=== PATIENT | female | born 1940 | race Caucasian/White ===

== ENCOUNTER 2016-10-28 05:30 | Inpatient (IN) | payer MEDICARE, OTHER ==
--- NOTE | 2016-10-27 10:17 | HP ---
DATE OF CLINIC: 10/22/2016 KAYLEN TOVAR : 1940 PLANNED PROCEDURE: Left Reverse Shoulder Arthroplasty and Biceps Tenodesis DATE OF SURGERY: October 28, 2016 SURGEON: Anil Alexander M.D. HISTORY OF PRESENT ILLNESS Kaylen Tovar is a 76 year old female. * Medication list reviewed with patient allergy list reviewed with patient. The patient is a 76-year-old female who is LHD who has complaints about bilateral shoulder pain. The patient's underlying diagnosis is bilateral rotator cuff arthopathy. The patient rates her pain as 6/10 today. She is here to discuss with moving forward with a left RSA. She was previously seen by Hunter Rodrigez PA-C who referred her to me for further evaluation. The patient has a history of bilateral shoulder surgeries. On the left side she has had 2 shoulder surgeries; the first surgery was performed by Dr. Cordero who did an arthroscopic attempt at a rotator cuff repair. This was later revised through a mini open approach performed by Dr. Cavanaugh, also in [place], on 10/08/11. Both attempts to perform a left shoulder rotator cuff repair have failed and she continues to struggle with left shoulder pain. She rates her pain as probably 6-8/10. The patient had a steroid injection in 06/2016 with limited improvement in her pain. The patient would like to consider moving forward with a surgery on the left and would like to talk to me about her options. She would like to see a model of a reverse shoulder arthroplasty and discuss with me her options. We discussed the risks and benefits of both non-operative and surgical options and she has elected to proceed with surgery. She presents today preoperatively. PMH: She also reports that she had an arthroscopic attempt at a rotator cuff repair on 04/29/10 on the right shoulder. She has limited ROM on this side as well. CURRENT MEDICATION * Acetaminophen 500 MG Tablet as directed 2 every 6 hours, 0 days, 0 refills * Ambien 5 MG Tablet 1 every night as needed 0 days, 0 refills * Aspirin 81 MG Tablet Delayed Release 1 once a day 0 days, 0 refills * Clotrimazole 1 % Cream as directed 0 days, 0 refills * Cymbalta 60 MG Capsule Delayed Release Particles 1 once a day 0 days, 0 refills * Fish Oil 1000 MG Capsule 1 twice a day 0 days, 0 refills * Furosemide 20 MG Tablet 1 once a day 0 days, 0 refills * Gabapentin 400 MG Capsule four times a day 0 days, 0 refills * HydroCHLOROthiazide 12.5 MG Tablet 1 once a day 0 days, 0 refills * Levothyroxine Sodium 112 MCG Tablet 1 once a day 0 days, 0 refills * Lipitor 40 MG Tablet 1 once a day 0 days, 0 refills * Loratadine 10 MG Tablet 1 once a day 0 days, 0 refills * Multi Vitamin Daily Tablet 1 once a day 0 days, 0 refills * Naprosyn 500 MG Tablet 1 twice a day 0 days, 0 refills * Norvasc 10 MG Tablet 1 once a day 0 days, 0 refills * Nystop 379819 UNIT/GM Powder as directed 0 days, 0 refills * Oxybutynin Chloride ER 5 MG Tablet Extended Release 24 Hour 1 once a day 0 days, 0 refills * Potassium Chloride 10 MEQ/100ML Solution 1 once a day 0 days, 0 refills * Terbinafine HCl 1 % Cream as directed 0 days, 0 refills * TiZANidine HCl 2 MG Tablet 1 every night as needed 0 days, 0 refills * TraMADol HCl 50 MG Tablet as directed 2 tabs 4 times a day, 0 days, 0 refills * Triamcinolone Acetonide 0.1 % Cream as directed 0 days, 0 refills * Vitamin D3 2000 UNIT Capsule 1 once a day 0 days, 0 refills * Xalatan 0.005 % Solution 1 once a day 0 days, 0 refills PAST MEDICAL/SURGICAL HISTORY Reported: Shoulder Arthroscopy Right shoulder RCR 04/29/10, Left shoulder tendon repair 08/2011 & 09/2011. Medical: Stomach problems ulcers in my 20's, bladder disease, Reported numbness, Reported tingling, Diabetes Mellitus [id number], history of Arthritis, Depression, Thyroid Disorder, Hypertension, Anemia, Vertigo, and Poor healing wounds/lesions. SOCIAL HISTORY Social history unchanged. Behavioral: No caffeine use, no tobacco use, not a current smoker, and not chewing tobacco. Quit smoking stopped in 1998 after smoking 1 pack a day for 40+ years. Smoking status: Former smoker. Alcohol: No consumption of alcohol and not using alcohol. Drug Use: Drug use alcoholic but quit in 1985. 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 ALLERGIES * Mirtazapine Reaction: anxiety * Penicillin Reaction: Skin Rashes/Hives * Rozerem Reaction: dizziness/upset stomach REVIEW OF SYSTEMS Systemic: No fever and no recent weight change. Cardiovascular: No chest pain or discomfort and no palpitations. Pulmonary: No cough and no wheezing. Gastrointestinal: No nausea, no vomiting, no abdominal pain, and no diarrhea. Hematologic: No easy bleeding (no blood clots). Neurological: No motor disturbances and no sensory disturbances. Skin: No skin lesions and no rash. PHYSICAL FINDINGS * Vitals taken 10/22/2016 01:30 pm BP-Sitting R 153/79 mmHg 100 - 120/56 - 80 BP Cuff Size Regular Pulse Rate-Sitting 70 bpm 50 - 100 Pulse Rhythm Regular Temp-Oral 97.6 F 96 - 101 Height 56.5 in 59 - 68 Weight 185 lbs 95 - 175 Body Mass Index 40.7 kg/m2 Body Surface Area 1.73 m2 Pain Level 6 General Appearance: * Well developed. * In no acute distress. Eyes: General/bilateral: Extraocular Movements: * Normal. Lungs: * Clear to auscultation. * No wheezing was heard. * No rales/crackles were heard. Cardiovascular: Heart Rate and Rhythm: * Heart rate was normal. * Heart rhythm regular. Abdomen: Palpation: * Abdominal non-tender. Neurological: * Oriented to time, place, and person. The patient walks with a walker so she relies on both arms to ambulate. She states she cannot deal with a cane because of the pain she has associated with ambulation. The patient has limited motion of both shoulders. Both shoulders show restricted forward flexion, abduction, internal and external rotation. The left side has worse motion than the right. PHYSICAL FINDINGS RIGHT EXTREMITY Shoulder General Appearance: well-healed arthroscopic incisions, no bruising, no swelling, no gross deformity. 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 AROM Forward Flexion: 50 degrees ABD: 60 degrees IR: Highest posterior anatomy reached with thumb: Sacrum PROM ER (0): 30 degrees Strength (0-5/5) Deltoid: 5/5 Triceps: 5/5 Biceps: 5/5 EPL,Finger Flexors,Finger Extensors,Wrist Flexors, Wrist Extensors,Intrinsics,Church Secretary: 5/5 Rotator cuff Supraspinatus: POSITIVE empty can test Infraspinatus: POSITVE with weakness and pain with resisted external rotation Subscapularis: 4/5 (negative belly press test) Rotator Cuff Exam Neer's Sign: POSITIVE Hawkin's Sign: POSITIVE Superior Escape: Negative Biceps Exam Bicipital Groove Tenderness: POSITIVE Muscle Deformity (Hudson): Not present Instability Generalized Laxity(thumb to forearm, hyperextension of elbows and knees, hypermobility of multiple joints): Not present, no signs of instability Other Medial Scapular Tenderness: Negative Trapezius Pain: Negative Vascular Exam Radial Pulse: 2+ Sensation Gross sensation to light touch in the distribution of Median, Ulnar, axillary, and Radial nerves present PHYSICAL FINDINGS LEFT EXTREMITY General Appearance: well-healed arthroscopic incisions and a left shoulder anteorlateral open incision from a previous open RCR. She has no bruising, no swelling, no gross deformity. 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 AROM Forward Flexion: 45 degrees ABD: 50 degrees IR: Highest posterior anatomy reached with thumb: Sacrum PROM ER (0): 20 degrees Strength (0-5/5) Deltoid: 5/5 Triceps: 5/5 Biceps: 5/5 EPL,Finger Flexors,Finger Extensors,Wrist Flexors, Wrist Extensors,Intrinsics,Church Secretary: 5/5 Rotator cuff Supraspinatus: POSITIVE empty can test Infraspinatus: POSITIVE with weakness and pain with resisted external rotation Subscapularis: 4/5 (negative belly press test) Rotator Cuff Exam Neer's Sign: POSITIVE Hawkin's Sign: POSITIVE Superior Escape: Negative Biceps Exam Bicipital Groove Tenderness: POSITIVE Muscle Deformity (Hudson): Not present Instability Generalized Laxity(thumb to forearm, hyperextension of elbows and knees, hypermobility of multiple joints): Not present, no signs of instability Other Medial Scapular Tenderness: Negative Trapezius Pain: Negative Vascular Exam Radial Pulse: 2+ Sensation Gross sensation to light touch in the distribution of Median, Ulnar, axillary, and Radial nerves present PREVIOUS TESTS * Test: CBC NO DIFF Report Date: 10/20/2016 WBC 12.1 10*3/mL High MCV 92.4 fL RBC 4.58 10*6/uL MCH 29.3 pg MCHC 31.7 g/dL Low RDW 12.8 % PLATELET COUNT 277 10*3/mL HCT 42.3 % HGB 13.4 g/L * Test: ERYTHROCYTE SEDIMENTATION RATE Report Date: 10/20/2016 SED RATE 6 * Test: PROTHROMBIN TIME Report Date: 10/20/2016 PROTIME 10.0 s INR 0.95 * Test: PARTIAL THROMBOPLASTIN TIME Report Date: 10/20/2016 APTT 23.7 s Low * Test: BASIC METABOLIC PROFILE Report Date: 10/20/2016 BUN 20 mg/dL BUN/CREAT RATIO 29 High CALCIUM 9.6 mg/dL GLUCOSE 92 mg/dL CREATININE 0.7 mg/dL SODIUM 142 meq/L POTASSIUM 3.8 meq/L CHLORIDE 106 meq/L CARBON DIOXIDE 28 meq/L ANION GAP 12 meq/L GFR 81 High * Test: C-REACTIVE PROTEIN Report Date: 10/20/2016 CRP < 0.3 * Test: MRSA SCREEN Report Date: 10/21/2016 MRSA SCREEN NEGATIVE * Test: MSSA SCREEN Report Date: 10/21/2016 MSSA SCREEN POSITIVE FOR STAPHYLOCOCCUS AUREUS Abnormal * Test: URINALYSIS WITH MICROSCOPIC Report Date: 10/21/2016 EPITHELIAL CELL 0 WBC 10-20 GLUCOSE NEGATIVE BACTERIA 3+ PH,URINE 6.0 SPEC. GRAVITY 1.020 KETONE NEGATIVE NITRITE NEGATIVE RBC 0 BLOOD NEGATIVE BILIRUBIN NEGATIVE APPEARANCE SL CLOUDY PROTEIN TRACE COLOR YELLOW LEUK ESTERASE TRACE UROBILINOGEN NORMAL IMAGING 10.20.2016--CXR: No signs of any cardiopulmonary problems 09.25.2016--CT of the left shoulder--the patient has a glenoid that a baseplate could fit. The length of glenoid is close to 24mm. The patient has signs consistent with RC arthropathy. Lt shoulder X-rays performed on 07/09/16 show a high riding humeral head with a narrowed acromiohumeral distance on the left side consistent with chronically torn rotator cuff tear. The patient has post-surgical changes on the humeral head. The patient has some signs of osteoarthritis on this left side and 2 loose bodies more inferiorly consistent with a massive rotator cuff tear. Right shoulder X-rays performed on 07/09/16 also shows signs of rotator cuff arthropathy with signs of humeral head elevation and a loose body in the axillary recess consistent with early arthritis as well as a massive rotator cuff tear. ASSESSMENT Anil Alexander MD made the following assessments * Complete tear of right rotator cuff tendon --(right shoulder RC arthropathy) * Complete tear of left rotator cuff tendon --(Left shoulder RC arthropathy) PLAN Anil Alexander MD ordered the following therapy * Shoulder arthroplasty -left RSA with biceps tenodesis THERAPY * Patient fall risk screen negative. * Patient eligible for fall risk assessment. * Patient received fall risk assessment. SURGICAL CONSENT We have discussed surgical options including left reverse shoulder arthroplasty with biceps tenodesis and non-operative management. Due to her previous surgeries, we will send samples for signs of infection. Her ESR and CRP are normal so I have a low suspicion for this. I then spoke to the patient about the risks and benefits of surgery. I showed her my patient education power-point presentation where I reviewed the benefits, the technical aspects of the surgery and the risks associated with the procedure. Because of those findings and failure of conservative non-operative treatment, after a lengthy discussion of the risks and benefits she/he elected to proceed with the above mentioned surgery. The patient understood that the risks of infection, blood loss, neurovascular injury, anesthetic risk, risk of instability, stiffness and post-operative pain. I explained to the patient that a reverse shoulder replacement refers to the resurfacing of the glenoid (part of the scapula) placing a metal ball or glenosphere with screws on this side of the joint, and cementing a metal stem used to fix it on the inside of the arm bone (humerus) with a plastic socket fixed in the humeral shaft. This procedure is the standard approach tot he management of arthritis of the shoulder joint in a patient's shoulder without a functional rotator cuff tendon. Because it resurfaces both the ball and the socket sides of the joint, it provides the most assured approach to restoring comfort and function to the shoulder. We can perform this shoulder surgery by operating through the delto-pectoral interval through an incision in the anterior aspect of the shoulder. Commonly, we performed a tenodesis of the long head of the biceps and a release (and repair) of the subscapularis tendon from the humerus. The long head of the biceps is sutured to the pectoral major tendon, and the subscapularis tendon is repaired back to the bone at the conclusion of the surgery. After a release of the subscapularis, the capsule, which is usually tight and contracted, limiting motion of the shoulder, is released. The arthritic part of the ball is removed with care to preserve the rotator cuff. The bone spurs are removed from around the humerus to avoid unwanted contact with the scapula. We then shape the bone of the socket area (glenoid) to receive the glenosphere ball. This is fixed in place with screws while the humeral socket is held in place with a small amount of bone cement (polymethylmethacrylate). This goes inside the humeral bone. The subscapularis is then repaired to the humerus using sutures. The [id number] of the shoulder is then evaluated and stability is then examined. The incision is then washed and closed. Pendulum exercises will be taught to the patient the day after surgery. Patients are usually discharged from the hospital on the second day after surgery, as long as they are comfortable on oral pain medication have met our goals for their [id number], and are able to walk with good balance and can care for their daily needs. In the past, there has been a major concern about wear of the glenoid socket component or about its loosening. While these concerns remain to a degree, it appears that our current methods of socket preparation and current prosthesis designs have substantially reduced these risks. Shoulder replacement surgery usually results in a substantial improvement in the comfort and function of an arthritic shoulder, but the results cannot be expected to match the condition of a normal joint. The patient was counseled in detail regarding the diagnosis, treatment options available, prognosis of each treatment option and the potential risks and complications. The risks of surgery include, but are not limited to, anesthetic , neurovascular complications, pulmonary embolism, deep vein thrombosis, wound dehiscence, failure of any or all of the discussed procedures, infection of the joint or surrounding soft tissue, need for revision surgery, chronic pain, limitations in activities of daily living, inability to return to work, and loss of normal range of motion or functional use of the extremity. There is the possibility of failure over time that may require additional operative or non-operative treatment. The patient acknowledged that there are a number of perioperative risks not mentioned here and would still like to proceed. The patient is aware of and understands these risks, and wishes to proceed with the proposed surgical procedure and other procedures as indicated at the time of surgery. The patient has seen her PCP for a preoperative medical risk assessment. The preoperative instructions were reviewed with the patient and all questions were answered. CARE TEAM BUSHRA Aguilera Physician Alumni Relations Officer BLP/sg
[~2016-10-28 05:30] MED LIST: CLINDAMYCIN 600 MG PREMIX 50 ML IV PRN
[2016-10-28] MEDS ORDERED: IV START KIT ONE (05:49)
[2016-10-28] MEDS ORDERED: LACTATED RINGERS 1,000 ML ONE (05:49)
[2016-10-28] MEDS ORDERED: EPINEPHRINE 1 MG/ML 1ML AMP ONE (06:15)
[2016-10-28] MEDS ORDERED: CLINDAMYCIN 600 MG PREMIX 50 ML IV ONE (06:31)
[2016-10-28] MEDS ORDERED: ROCURONIUM BROMIDE 10 MG/ML DOSE IV ONE (06:46)
[2016-10-28] MEDS ORDERED: DEXAMETHASONE SOD PHOS 4 MG/1 ML VIAL ONE (06:46)
[2016-10-28] MEDS ORDERED: MIDAZOLAM HCL 1 MG/ML 2ML VIAL ONE (06:46)
[2016-10-28] MEDS ORDERED: FENTANYL 100 MCG/2 ML VIAL ONE (06:46)
[2016-10-28] MEDS ORDERED: PROPOFOL 20 ML IV ONE (06:46)
[2016-10-28] MEDS ORDERED: ONDANSETRON 4 MG/2ML 2 ML VIAL ONE (06:46)
[2016-10-28] MEDS ORDERED: NERVE BLOCK PROCEDURAL TRAY 1 EACH ONE (06:50)
[2016-10-28] MEDS ORDERED: ROPIVACAINE 0.5% 30 ML VIAL ONE (06:50)
[2016-10-28] MEDS ORDERED: ATROPINE SULFATE 0.4 MG/1 ML VIAL IV PRN (08:29)
[2016-10-28] MEDS ORDERED: FENTANYL 100 MCG/2 ML VIAL IV PRN (08:29)
[2016-10-28] MEDS ORDERED: NALOXONE HCL 0.4 MG/ML VIAL IV PRN (08:29)
[2016-10-28] MEDS ORDERED: LABETALOL HCL 5 MG/ML 20ML VIAL IV PRN (08:29)
[2016-10-28] MEDS ORDERED: ON-Q PUMP/ROPIVACAINE 0.2% 450 ML in PREMIX BAG 1 EACH NB PRN (08:29)
[2016-10-28] MEDS ORDERED: MEPERIDINE 25 MG/ML SYRINGE IV PRN (08:29)
[2016-10-28] MEDS ORDERED: PROMETHAZINE HCL 25 MG/ML VIAL IM PRN (08:29)
[2016-10-28] MEDS ORDERED: ONDANSETRON 4 MG/2ML 2 ML VIAL IV PRN ×2 (08:29→12:05)
[2016-10-28] MEDS ORDERED: LACTATED RINGERS 1,000 ML IV SCH (08:30)
--- NOTE | 2016-10-28 10:34 | PCMBPN ---
Brief Post Op Note: Date of Procedure: 10/28/16 Preoperative Diagnosis: 1. left shoulder rotator cuff arthropathy from failed rotator cuff repairs Postoperative Diagnosis: 1. [Same] Procedure: left shoulder reverse shoulder arthroplasty and biceps tenodesis Surgeon: Anil Alexander MD Assist: Elia WARD Anesthesia: GETA, left intrascalene nerve block and catheter for post-op pain relief Findings: as expected, pt has a large rotator cuff tear. Subscap was able to be repaired back. DJO size 10mm press-fit humeral stem. 32-4 glenosphere. screws 22 , 30, 14 and 26. Standard poly Condition: extubated, stable vitals, transferred to pacu Complications: None IV Fluids: 1600 mLs of LR Urine Output: 600 mLs Estimated Blood Loss: 200 mLs Tourniquet Time: [N/A] Specimens: [N/A] Implants: DJO Drains: [N/A] PLAN: NWB on the RUE. SLing at all times. Oxycodone for pain control, clinda x 24 hours post-op, and ASA for dvt prophylaxis.
[2016-10-28] MEDS ORDERED: ON-Q PUMP/ROPIVACAINE 0.2% 450 ML ONE (10:37)
[2016-10-28 10:38] VITALS: BMI 29.9
[2016-10-28] MEDS: HYDROMORPHONE HCL 1 MG/ML SYRINGE IV PRN ×3 (11:41→11:57)
--- NOTE | 2016-10-28 11:41 | RAD ---
SHOULDER-LEFT 1 VIEW HISTORY: Left reverse total shoulder arthroplasty. COMPARISONS: Preop examination dated 07/09/2016. FINDINGS: 2 intraoperative fluoroscopic images demonstrate placement of a reverse shoulder arthroplasty with the metallic components projecting over each other. No discrete pericomponent fracture is visualized. A total of 5.4 seconds of fluoroscopy was utilized for the examination. IMPRESSION: 1. Intraoperative fluoroscopy for placement of a reverse left shoulder arthroplasty as discussed above.
--- NOTE | 2016-10-28 11:49 | RAD ---
SHOULDER-LEFT 2 OR MORE VIEWS History: Postop shoulder arthroplasty. Comparison: Intraoperative examination of the same day. Findings: 3 views of the left shoulder were performed demonstrating placement of a reverse left shoulder arthroplasty with a noncemented humeral component. No evidence of a pericomponent fracture is suggested. The metallic components appear to be in appropriate position. There is lysis of the distal left clavicle noted, stable from its appearance on prior exam, possibly posttraumatic. The included portions of the left lung field are within expected. Impression: 1. A reverse left shoulder arthroplasty with no pericomponent fracture suggested.
[2016-10-28] MEDS ORDERED: MAGNESIUM HYDROXIDE 30 ML UDCUP PO PRN (12:05)
[2016-10-28] MEDS ORDERED: TRAMADOL HCL 50 MG TABLET PO PRN (12:05)
[2016-10-28] MEDS ORDERED: DIPHENHYDRAMINE HCL 50 MG/1 ML VIAL IV PRN (12:05)
[2016-10-28] MEDS ORDERED: MORPHINE SULFATE 2 MG/ML SYRINGE IV PRN (12:05)
[2016-10-28] MEDS ORDERED: LORATADINE 10 MG TABLET PO PRN (12:05)
[2016-10-28] MEDS ORDERED: TIZANIDINE HCL 4 MG TABLET PO PRN (12:05)
[2016-10-28] MEDS ORDERED: BISACODYL 10 MG SUP PR PRN (12:05)
[2016-10-28] MEDS ORDERED: PUMP TUBING ONE (13:09)
[2016-10-28] MEDS: LACTATED RINGERS 1,000 ML IV SCH ×2 (13:12→22:00)
[2016-10-28] MEDS ORDERED: MORPHINE SULFATE 4 MG/ML SYRINGE IV PRN (14:08)
[2016-10-28] MEDS: GABAPENTIN 100 MG CAPSULE PO SCH ×3 (14:28→20:43)
[2016-10-28] MEDS: CLINDAMYCIN 600 MG PREMIX 600 MG in Premix (D5W) 50 ml 1 EACH IV SCH (16:29)
[2016-10-28] MEDS: OXYBUTYNIN CHLORIDE 5 MG TABLET PO SCH (20:43)
[2016-10-28] MEDS: DOCUSATE SODIUM 100 MG CAPSULE PO SCH (20:43)
[2016-10-28] MEDS: NAPROXEN 500 MG TABLET PO SCH (20:43)
[2016-10-28] MEDS: ATORVASTATIN CALCIUM 40 MG TABLET PO SCH (20:44)
[2016-10-28] MEDS: TRIAMCINOLONE ACET CREAM 0.1% 30 APPLIC/15 G TUBE TP SCH (20:44)
[2016-10-28] MEDS: MUPIROCIN CALCIUM 2% OINT 22 APPLIC/22 G TUBE TP SCH (20:44)
[2016-10-28] MEDS: ZOLPIDEM TARTRATE 5 MG TABLET PO SCH (20:44)
[2016-10-28] MEDS: LATANOPROST 0.005% 50 GTTS/2.5 ML BOT SOLN.DROP OU SCH (20:55)
[2016-10-28] MEDS: NYSTATIN TOPICAL POWDER 100 MU/G 5 APPLIC/15 G BOT TP SCH (20:55)
[2016-10-28] MEDS ORDERED: TERBINAFINE HCL TP SCH (21:00)
[2016-10-28] MEDS ORDERED: Non Formulary Drug 1 EACH EA (Omega-3 Fatty Acids/Fish Oil [Fish Oil 1,000 Mg Softgel] 1 E PO SCH (21:00)
[2016-10-29] MEDS: CLINDAMYCIN 600 MG PREMIX 600 MG in Premix (D5W) 50 ml 1 EACH IV SCH (00:07)
[2016-10-29] MEDS: OXYCODONE HCL 5 MG TABLET PO PRN ×4 (05:33→13:19)
[2016-10-29] MEDS: LACTATED RINGERS 1,000 ML IV SCH (05:53)
[2016-10-29 06:51] LABS: HEMATOCRIT 25.8 % (37.0-47.0); HEMOGLOBIN 8.5 gm/l (12.0-16.0); MEAN CELL VOLUME 90.8 fl (81.0-99.0); MEAN CORPUSCULAR HEMOGLOBIN 29.9 pg (27.0-31.0); MEAN CORPUSCULAR HGB CONC 32.9 g/dl (33.0-37.0); RED CELL DISTRIBUTION WIDTH 12.8 % (11.5-14.5)
[2016-10-29 07:15] LABS: CALCIUM 8.4 mg/dL (8.6-10.3)
[2016-10-29] MEDS: LEVOTHYROXINE SODIUM 112 MCG TABLET PO SCH (07:30)
--- NOTE | 2016-10-29 08:09 | PDOC43 ---
- Subjective Subjective: Reports Pain Tolerable (Pt having some more pain but overall slept well overnight.), Denies Chest Pain, Denies Nausea, Denies Vomiting - Objective Vital Signs Temperature 97.9 F 10/29/16 07:21 Pulse Rate 87 10/29/16 07:21 Respiratory Rate 17 10/29/16 07:21 Blood Pressure 126/74 10/29/16 07:21 O2 Saturation by Pulse Oximetry 100 10/29/16 07:21 Oxygen Delivery Method Nasal Cannula Oxygen Flow Rate 2 Laboratory 10/29/16 06:30 10/29/16 06:30 10/29/16 06:30 RBC 2.84 L MCHC 32.9 L Estimated GFR 120 H Calcium 8.4 L Active Medication Orders Category Date Time Status Acetaminophen [Tylenol] Med 10/29/16 10:58 Active 500 - 1,000 mg PO Q6H PRN Amlodipine Besylate [Norvasc] Med 10/29/16 09:00 Active 5 mg PO DAILY Aspirin (Enteric Coated) [Ecotrin] Med 10/29/16 09:00 Active 325 mg PO DAILY Atorvastatin Calcium [Lipitor] Med 10/28/16 20:00 Active 40 mg PO QPM Bisacodyl [Dulcolax] Med 10/28/16 12:05 Active 10 mg KS DAILY PRN Diphenhydramine HCl [Benadryl] Med 10/28/16 12:05 Active 25 - 50 mg IV Q6H PRN Docusate Sodium [Colace] Med 10/28/16 21:00 Active 100 mg PO BID Duloxetine HCl [Cymbalta] Med 10/29/16 09:00 Active 60 mg PO QAM Gabapentin [Neurontin] Med 10/28/16 13:00 Active 400 mg PO QID Lactated Ringers 1,000 ml Med 10/28/16 12:05 Active IV 125 mls/hr Latanoprost 0.005% [Xalatan] Med 10/28/16 21:00 Active 1 gtts OU BEDTIME Levothyroxine Sodium [Levothroid] Med 10/29/16 07:30 Active 112 mcg PO QAMAC Loratadine [Claritin] Med 10/28/16 12:05 Active 10 mg PO DAILY PRN Losartan Potassium [Cozaar] Med 10/29/16 09:00 Active 25 mg PO DAILY Magnesium Hydroxide [Milk of Magnesia] Med 10/28/16 12:05 Active 30 ml PO DAILY PRN Morphine Sulfate Med 10/28/16 12:05 Active 2 - 4 mg IV Q4H PRN Morphine Sulfate Med 10/28/16 14:08 Active 2 - 4 mg IV Q4H PRN Multivitamin W/ Minerals [Theragran-M] Med 10/29/16 09:00 Active 1 tab PO DAILY Mupirocin Calcium 2% [Bactroban] Med 10/28/16 21:00 Active 1 applic TP BID Naproxen [Naprosyn] Med 10/28/16 21:00 Active 500 mg PO BID Nystatin Topical Powder [Mycostatin Topical Powder] Med 10/28/16 21:00 Active 1 applic TP BID Merritt-3 Fatty Acids/Fish Oil [Fish Oil 1,000 mg Softgel Med 10/28/16 21:00 Hold ] 1 each PO BID Ondansetron 4 mg/2ml Vial [Zofran] Med 10/28/16 12:05 Active 4 - 6 mg IV Q6H PRN Oxybutynin Chloride [Ditropan] Med 10/28/16 21:00 Active 5 mg PO BID Oxycodone HCl [Roxicodone] Med 10/28/16 12:05 Active 5 - 10 mg PO Q4H PRN Sodium Chloride 0.9% Flush [Normal Saline 10ml Flush] Med 10/28/16 12:05 Active 10 - 50 ml IV PRN PRN Sodium Chloride 0.9% Flush [Normal Saline 10ml Flush] Med 10/29/16 09:00 Active 10 ml IV Q8HR Terbinafine HCl [Lamisil At] Med 10/28/16 21:00 Pending 12 gm TP BID Tizanidine HCl [Zanaflex] Med 10/28/16 12:05 Active 2 mg PO Q8H PRN Tramadol HCl [Ultram] Med 10/28/16 12:05 Active 100 mg PO QAM PRN Triamcinolone Acet 0.1% [Kenalog] Med 10/28/16 21:00 Active 1 applic TP BID Vitamin D3 Med 10/29/16 09:00 Active 2,000 units PO DAILY Zolpidem Tartrate [Ambien] Med 10/28/16 21:00 Active 5 mg PO BEDTIME Intake and Output 02/06/17 02/07/17 02/08/17 23:59 23:59 23:59 Intake Total 2486 2825 Output Total 1475 1400 Balance 1011 1425 General: Afebrile - Left Upper Extremity Incision: Dressing Clean/Dry/Intact Motor: Extensor Pollicis Longus: 5/5, Finger Flexors: 5/5, Finger Extensors: 5/5 , Wrist Flexors: 5/5, Wrist Extensors: 5/5, Intrinsics: 5/5 Gross Sensation to Light Touch: Present: Median Nerve, Ulnar Nerve, Radial Nerve , Axillary Nerve Capillary Refill: < 3 Seconds - Disposition POD#1 s/p left RSA NWB on the RUE. Sling at all times. PCN at all times. ASA for DVT prophylaxis. PT and OT will work with pt today.
[2016-10-29] MEDS: TRIAMCINOLONE ACET CREAM 0.1% 30 APPLIC/15 G TUBE TP SCH ×2 (09:13→20:26)
[2016-10-29] MEDS: MUPIROCIN CALCIUM 2% OINT 22 APPLIC/22 G TUBE TP SCH ×2 (09:13→20:26)
[2016-10-29] MEDS: VITAMIN D3 1,000 UNITS CAP.LIQ PO SCH (09:13)
[2016-10-29] MEDS: GABAPENTIN 100 MG CAPSULE PO SCH ×4 (09:14→20:26)
[2016-10-29] MEDS: LOSARTAN POTASSIUM 50 MG TABLET PO SCH (09:14)
[2016-10-29] MEDS: DOCUSATE SODIUM 100 MG CAPSULE PO SCH ×2 (09:15→20:25)
[2016-10-29] MEDS: OXYBUTYNIN CHLORIDE 5 MG TABLET PO SCH ×2 (09:15→20:25)
[2016-10-29] MEDS: NAPROXEN 500 MG TABLET PO SCH ×2 (09:15→20:25)
[2016-10-29] MEDS: MULTIVIT W/ MINERALS 1 TAB TABLET PO SCH (09:15)
[2016-10-29] MEDS: DULOXETINE HCL 60 MG CAP PO SCH (09:15)
[2016-10-29] MEDS: ASPIRIN (ENTERIC COATED) 325 MG TABLET.EC PO SCH (09:15)
[2016-10-29] MEDS: AMLODIPINE BESYLATE 5 MG TABLET PO SCH (09:15)
[2016-10-29] MEDS: NYSTATIN TOPICAL POWDER 100 MU/G 5 APPLIC/15 G BOT TP SCH ×2 (09:32→20:25)
[2016-10-29] MEDS ORDERED: NYSTATIN TOPICAL POWDER 100 MU/G 5 APPLIC/15 G BOT TP SCH (10:45)
[2016-10-29] MEDS ORDERED: TRIAMCINOLONE ACET CREAM 0.1% 30 APPLIC/15 G TUBE TP SCH (10:45)
[2016-10-29] MEDS ORDERED: MUPIROCIN CALCIUM 2% OINT 22 APPLIC/22 G TUBE TP SCH (10:45)
[2016-10-29] MEDS ORDERED: ACETAMINOPHEN 500 MG TABLET PO PRN (10:58)
--- NOTE | 2016-10-29 15:41 | OP ---
Kaylen TOVAR : 1940 [id number] DATE OF PROCEDURE: October 28, 2016 PREOPERATIVE DIAGNOSIS: Left shoulder rotator cuff arthropathy after failed previous rotator cuff repairs performed by an outside orthopedic surgeon. POSTOPERATIVE DIAGNOSIS: Left shoulder rotator cuff arthropathy after failed previous rotator cuff repairs performed by an outside orthopedic surgeon. PROCEDURE: LEFT SHOULDER REVERSE SHOULDER ARTHROPLASTY AND BICEPS TENODESIS. SURGEON: Anil Alexander M.D. WATCH ASSEMBLER: Hunter Rodrigez P.A.-C. ANESTHESIA: General along with a left interscalene nerve block and catheter for postoperative relief. FINDINGS: As suspected, the patient had a large recurrent rotator cuff tear. I was able to remove a couple of previously placed rotator cuff anchors from the greater tuberosity. The subscapularis was able to be repaired back at the end of the case. I used a DJO size 10 mm PressFit humeral stem, a 32 -4 glenosphere and locking screws into the standard base plate measuring 22, 30, 14 and 26 mm. A standard poly was used. CONDITION: The patient was extubated with stable vital signs and transferred to the PACU. COMPLICATIONS: None. INTRAVENOUS FLUIDS: 1600 mL of Lactated Ringer's. URINE OUTPUT: 600 mL ESTIMATED BLOOD LOSS: 200 mL SPECIMENS: N/A TOURNIQUET TIME: N/A IMPLANTS: A DJO reverse shoulder arthroplasty. DRAINS: N/A PLAN: The patient will be nonweightbearing on the left upper extremity, in a sling at all times. Oxycodone and IV morphine for pain control postoperatively and clindamycin for 24 hours. Aspirin will be used for DVT prophylaxis. INDICATIONS: The patient is a 76-year-old female who has had two previous rotator cuff surgeries with surgeons performed by an orthopedic surgeon in [place]. She has persisted have pain and poor motion. 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 She and I discussed the risks and benefits of nonoperative and surgical treatment. I talked to her about how I would perform reverse shoulder arthroplasty, what would be involved with going ahead with the surgery and the limitations. I told her that this would not guarantee normal motion but will improve her motion and function. We spoke about the risk of infection, DVT and other perioperative problems such as stroke or myocardial infarction. After a lengthy description and reviewing the risks and benefits of the procedure she decided to proceed. PROCEDURE DESCRIPTION: The patient was seen in the preoperative area where I reviewed with the patient regarding the procedure. They agreed that the left side was the correct side and that this matched the consent form. I placed my initials and the word "yes" on the left arm. After my initials were on the left arm and I updated the H&P, signing it, the patient was seen by the anesthesia team. They reviewed with her the risks and benefits of a nerve block and an intra-scalene nerve catheter was placed under ultrasound guidance. At this point the patient was brought from the preoperative area to the operating suite where the patient was placed on the OR bed and was placed asleep without difficulty. The patient was then intubated without difficulty or complications. The patient was then placed in the beach chair position. The hips were flexed to 45 degrees and the knees were flexed to 45 degrees. Plastic goggles were used to cover the eyes and the head gear was placed securing the head to the bed. The patient was positioned so that a safety belt was secured and the patient had a black knee bump. The patient had bilateral SCDs on each foot for intra-operative DVT prophylaxis. The patient's head was positioned in a neutral position. At this point the bed was turned 45 degrees. The C-arm was brought in and I confirmed that we could obtain a Grashey view. After this was checked, a Betadine scrub, paint and chlorhexidine prep was used to prep the left upper extremity. At this point a final time-out was performed. We confirmed that the patient's correct images were brought up on the view box. This included xrays of the left shoulder and a CT scan demonstrating the version of the glenoid and bony landmarks. In this final time-out we confirmed that the left side was the correct side that our procedure was a left reverse shoulder arthroplasty with a long head of the biceps tendoesis and antibiotics clindamycin 600 mg. Almost ready to start the surgery, the incision was drawn with a sterile marker. I measured a 10cm line starting just proximal and medial to the coracoid process extending to the mid-shaft of the humerus in the delto-pectoral interval. An Ioban was placed above and below the axilla isolating it from the operative field. A #10 blade was now used to incise the skin. [place] cautery was used to gain good hemostasis through the subcutaneous fat and 2 Gelpi retractors were placed. An Army-Walnut was placed proximally. A Schnidt was used to dissect to identify the cephalic vein. It was brought medially as the deltoid laterally was freed up. A Suarez deltoid retractor was then placed. Anterior bursal tissue was removed exposing the long head of the biceps. It was then tenodesed to the upper border of the pec tendon by its insertion on the humerus with a #2 fiberwire. At this point the rotator interval was opened with [place] cautery. A small, sharp Mateo was placed into the joint and the anterior capsule was then exposed. A tag suture was then placed in the superior border of the capsule and the remaining portion of the subscapularis. I then used my finger to feel the anterior border of the subscapularis palpating the axillary nerve as well as the axillary artery more medial and inferior. Once this was identified with my traction suture on the upper border of the anterior capsule, this was removed from the lesser tuberosity exposing the humeral head. This was performed with the arm and elbow in adduction and with gentle external rotation which allowed for dislocation of the humeral head. Once this was dislocated a 30 degree guide was used to guide my cut of the humeral head setting the retroversion to match the glenoid. Once this was performed blunt Hohmann retractors were used to protect the conjoined tendon. A large rongeur was used to make a better starting point for the canal finder. A canal finder was then used in the proximal humerus followed by 6 and then 8mm hand canal reamers. Once these were placed a 6mm broach and a 10 mm broach was placed into the canal. Next, a small metaphyseal reamer was used to ream out inferior border of the metaphysis. I thought there was enough bone to possibly support a press-fit humeral stem. Now with the humerus prepared, I turned my attention to the glenoid. The 10mm broach was left in place in the humerus and the broach handle was removed. I then palpated the axillary nerve one more time anterior to my subscapularis and capsule. I then placed a blunt posterior Romana retractor posteriorly, a small sharp Hohmann retractor superiorly, and a Cobra anteriorly exposing the glenoid. The anterior labrum was removed and the glenoid was exposed. Once this was performed I used a 2.5mm drill bit to drill my airplane pilot photogrammetry hole into the glenoid. I then measured this. This measured 30mm. At this point I took the drill out and placed in the tap into the same hole making sure not to lose my path. I then used the base plate reamer followed by the small reamer until I got some good bleeding bone inferiorly. I then placed the 30mm base plate with a center 6.5mm screw and base plate without difficulty getting a good bite. I then placed four 5mm locking screws at 12 o'clock, 3 o'clock, 6 o'clock and 9 o'clock. Once these 5.0mm screws were placed I used the base plate reamer to clean around the base plate itself and then placed the glenosphere (32-4). The engaged glenosphere taper was checked and the glenosphere screw was placed with the torque screwdriver. With the glenosphere now implanted, I then returned back to the humerus re-dislocating the humeral head placing the Suarez retractor under the deltoid. The medium metaphyseal reamer was then used. I then placed a standard socket with a 32mm poly and re-reduced the humerus onto the glenosphere. The prosthesis had good tension and good ROM. The implant position was check on C-arm and confirmed the ROM in external rotation, forward flexion and abduction. The humerus was then re-dislocated, I asked for the final implants to be opened and I placed 4 fiber tape sutures through drill holes in the lesser tuberosity to repair the subscapularis back. These fibertapes would be placed around the implant and then through the subscapularis for our repair at the end. The final implant was impacted and then relocated the humerus onto the glenosphere. I then used a free needle to pass my fiber tapes around the humeral stem repairing the subscapularis and capsule back to the anterior aspect of the humerus. This was done with the arm in 30 degrees of external rotation. Once this was performed I took the arm through a [id number]. I checked for good hemostasis and then irrigated the wound once again. The deltopectoral interval was closed with non-absorbable Ethibond sutures to jeanne the interval for any possible future revision surgeries. This was followed by 0 Vicryl, interrupted 2-0 Vicryl followed by a running Monocryl suture. A DSD was applied. The team confirmed that all needle and sponge counts were correct. The patient was placed in a shoulder immobilizer and awoken without difficulty and transferred to the recovery room. In the recovery room, the patient neurovascularly was grossly intact. The patient was able to fire the EPL, FF, FE, WF, WE and intrinsics 4/5 strength and had gross sensation to light touch in the distribution median, ulnar, radial and axillary nerves prior to placing a left interscalene catheter. The patient will be discharged to the floor. We will give antibiotics for the next 24 hours. For DVT prophylaxis she will be on SCD's and early ambulation. Job [id number] CC: [facility]
[2016-10-29] MEDS: LATANOPROST 0.005% 50 GTTS/2.5 ML BOT SOLN.DROP OU SCH (20:25)
[2016-10-29] MEDS: ATORVASTATIN CALCIUM 40 MG TABLET PO SCH (20:25)
[2016-10-29] MEDS: ZOLPIDEM TARTRATE 5 MG TABLET PO SCH (20:25)
[2016-10-30] MEDS: OXYCODONE HCL 5 MG TABLET PO PRN ×2 (04:57→12:06)
[2016-10-30 06:37] LABS: HEMATOCRIT 31.6 % (37.0-47.0); HEMOGLOBIN 10.4 gm/l (12.0-16.0); MEAN CELL VOLUME 90.8 fl (81.0-99.0); MEAN CORPUSCULAR HEMOGLOBIN 29.9 pg (27.0-31.0); MEAN CORPUSCULAR HGB CONC 32.9 g/dl (33.0-37.0); RED CELL DISTRIBUTION WIDTH 13.3 % (11.5-14.5)
[2016-10-30 06:51] LABS: CALCIUM 9.2 mg/dL (8.6-10.3)
[2016-10-30] MEDS: LEVOTHYROXINE SODIUM 112 MCG TABLET PO SCH (07:06)
[2016-10-30 08:54] VITALS: BP 139/80
--- NOTE | 2016-10-30 09:00 | PDOC43 ---
- Subjective Subjective: Reports Pain Tolerable (PT doing well in terms of pain. Sling in place. Pt is having a problem with overactive bladder last night. No SOB or lightheadedness with ambulation.) - Objective Vital Signs Temperature 98 F 10/30/16 08:53 Pulse Rate 111 10/30/16 08:53 Respiratory Rate 16 10/30/16 08:53 Blood Pressure 139/80 10/30/16 08:53 O2 Saturation by Pulse Oximetry 96 10/30/16 08:53 Oxygen Delivery Method Room Air Oxygen Flow Rate 0 Laboratory 10/30/16 05:30 10/30/16 05:30 10/30/16 05:30 RBC 3.48 L MCHC 32.9 L Estimated GFR 81 H Active Medication Orders Category Date Time Status Acetaminophen [Tylenol] Med 10/29/16 10:58 Active 500 - 1,000 mg PO Q6H PRN Amlodipine Besylate [Norvasc] Med 10/29/16 09:00 Active 5 mg PO DAILY Aspirin (Enteric Coated) [Ecotrin] Med 10/29/16 09:00 Active 325 mg PO DAILY Atorvastatin Calcium [Lipitor] Med 10/28/16 20:00 Active 40 mg PO QPM Bisacodyl [Dulcolax] Med 10/28/16 12:05 Active 10 mg MO DAILY PRN Diphenhydramine HCl [Benadryl] Med 10/28/16 12:05 Active 25 - 50 mg IV Q6H PRN Docusate Sodium [Colace] Med 10/28/16 21:00 Active 100 mg PO BID Duloxetine HCl [Cymbalta] Med 10/29/16 09:00 Active 60 mg PO QAM Gabapentin [Neurontin] Med 10/28/16 13:00 Active 400 mg PO QID Latanoprost 0.005% [Xalatan] Med 10/28/16 21:00 Active 1 gtts OU BEDTIME Levothyroxine Sodium [Levothroid] Med 10/29/16 07:30 Active 112 mcg PO QAMAC Loratadine [Claritin] Med 10/28/16 12:05 Active 10 mg PO DAILY PRN Losartan Potassium [Cozaar] Med 10/29/16 09:00 Active 25 mg PO DAILY Magnesium Hydroxide [Milk of Magnesia] Med 10/28/16 12:05 Active 30 ml PO DAILY PRN Morphine Sulfate Med 10/28/16 12:05 Active 2 - 4 mg IV Q4H PRN Morphine Sulfate Med 10/28/16 14:08 Active 2 - 4 mg IV Q4H PRN Multivitamin W/ Minerals [Theragran-M] Med 10/29/16 09:00 Active 1 tab PO DAILY Mupirocin Calcium 2% [Bactroban] Med 10/28/16 21:00 Active 1 applic TP BID Naproxen [Naprosyn] Med 10/28/16 21:00 Active 500 mg PO BID Nystatin Topical Powder [Mycostatin Topical Powder] Med 10/28/16 21:00 Active 1 applic TP BID [place]-3 Fatty Acids/Fish Oil [Fish Oil 1,000 mg Softgel Med 10/28/16 21:00 Hold ] 1 each PO BID Ondansetron 4 mg/2ml Vial [Zofran] Med 10/28/16 12:05 Active 4 - 6 mg IV Q6H PRN Oxybutynin Chloride [Ditropan] Med 10/28/16 21:00 Active 5 mg PO BID Oxycodone HCl [Roxicodone] Med 10/28/16 12:05 Active 5 - 10 mg PO Q4H PRN Sodium Chloride 0.9% Flush [Normal Saline 10ml Flush] Med 10/28/16 12:05 Active 10 - 50 ml IV PRN PRN Sodium Chloride 0.9% Flush [Normal Saline 10ml Flush] Med 10/29/16 09:00 Active 10 ml IV Q8HR Tizanidine HCl [Zanaflex] Med 10/28/16 12:05 Active 2 mg PO Q8H PRN Tramadol HCl [Ultram] Med 10/28/16 12:05 Active 100 mg PO QAM PRN Triamcinolone Acet 0.1% [Kenalog] Med 10/28/16 21:00 Active 1 applic TP BID Vitamin D3 Med 10/29/16 09:00 Active 2,000 units PO DAILY Zolpidem Tartrate [Ambien] Med 10/28/16 21:00 Active 5 mg PO BEDTIME Intake and Output 10/28/16 10/29/16 10/30/16 23:59 23:59 23:59 Intake Total 2486 3715 350 Output Total 1475 1400 200 Balance 1011 2315 150 General: Afebrile - Left Upper Extremity Incision: Dressing Clean/Dry/Intact, Well Approximated, Allison Intact, No Erythema, No Rash, No Ecchymosis Motor: Extensor Pollicis Longus: 5/5, Finger Flexors: 5/5, Finger Extensors: 5/5 , Wrist Flexors: 5/5, Wrist Extensors: 5/5, Intrinsics: 5/5, Biceps: 5/5, Triceps: 5/5, Deltoid: 4/5 Gross Sensation to Light Touch: Present: Median Nerve, Ulnar Nerve, Radial Nerve , Axillary Nerve Capillary Refill: < 3 Seconds - Disposition POD#2 s/p left RSA NWB on the RUE. Sling at all times. Clinda x 24 hours post-op is completed ASA for DVT prophylaxis. PT and OT will work with pt today. Possible discharge to home today. Will discuss with care mgt.
[2016-10-30] MEDS: ASPIRIN (ENTERIC COATED) 325 MG TABLET.EC PO SCH (09:19)
[2016-10-30] MEDS: GABAPENTIN 100 MG CAPSULE PO SCH (09:19)
[2016-10-30] MEDS: DOCUSATE SODIUM 100 MG CAPSULE PO SCH (09:19)
[2016-10-30] MEDS: OXYBUTYNIN CHLORIDE 5 MG TABLET PO SCH (09:19)
[2016-10-30] MEDS: VITAMIN D3 1,000 UNITS CAP.LIQ PO SCH (09:19)
[2016-10-30] MEDS: DULOXETINE HCL 60 MG CAP PO SCH (09:19)
[2016-10-30] MEDS: LOSARTAN POTASSIUM 50 MG TABLET PO SCH (09:19)
[2016-10-30] MEDS: NAPROXEN 500 MG TABLET PO SCH (09:20)
[2016-10-30] MEDS: AMLODIPINE BESYLATE 5 MG TABLET PO SCH (09:20)
[2016-10-30] MEDS: MULTIVIT W/ MINERALS 1 TAB TABLET PO SCH (09:20)
[2016-10-30] MEDS: MUPIROCIN CALCIUM 2% OINT 22 APPLIC/22 G TUBE TP SCH (09:28)
[2016-10-30] MEDS: TRIAMCINOLONE ACET CREAM 0.1% 30 APPLIC/15 G TUBE TP SCH (09:28)
[2016-10-30] MEDS: NYSTATIN TOPICAL POWDER 100 MU/G 5 APPLIC/15 G BOT TP SCH (09:28)
--- NOTE | 2016-10-31 10:16 | DS ---
Kaylen TOVAR [id number] : 1940 DATE OF ADMISSION: October 28, 2016 DATE OF DISCHARGE: October 30, 2016 HOSPITAL PROCEDURE: Left reverse shoulder arthroplasty for rotator cuff arthropathy. SURGEON: Anil Alexander M.D. HOSPITAL COURSE: The patient is a 76-year-old female who had left shoulder rotator cuff arthropathy. I spoke to the patient regarding her condition and after a failure of nonoperative treatment she opted to proceed with surgery. On October 28, 2016 she had a reverse shoulder arthroplasty. She had two previous attempted repairs of a rotator cuff by an outside orthopedic surgeon. Since the surgery the patient had adequate pain control secondary to interscalene nerve block. She has been taking oxycodone for pain control and by the morning of postoperative day one she was doing fairly well. Her [place] catheter was removed. She does have some urine incontinence at baseline, however throughout the day on postoperative day number one she did that she had no signs of orthostatic hypotension. She had normal electrolytes. Her postoperative hematocrit was 25.8. On postoperative day number two her hematocrit was 31.6. She did not receive a transfusion. Electrolytes were all within normal limits and she continued to do well with physical therapy and occupational therapy. The patient's left shoulder incision was examined. The wound was healed and sealed with a fibrin glue. A new dressing was applied. The patient has been able to maintain her precautions and do well with physical therapy and occupational therapy and was ready to be discharged home. She will be given a prescription for oxycodone for pain control and a full strength aspirin for DVT prophylaxis. She will maintain her precautions and follow up with us in approximately one week to see how she is doing. I attempted to answer all of her questions today. Job [id number] cc: [facility]
== END 2016-10-30 12:53 | disposition home or self-care (01) | DRG 483 ==
LOC: OR 05:30 → MS 13:04
PROVIDERS: ADMIT Orthopaedic Surgery; ATTEND Orthopaedic Surgery
PROC: 0RRK00Z Replacement of Left Shoulder Joint with Reverse Ball and Socket Synthetic Substitute, Open Approach (ICD-10-PCS; principal; 2016-10-28)
DX: M25.512 Pain in left shoulder (principal); M75.22 Bicipital tendinitis, left shoulder